=== PATIENT | female | born 1955 | race African-American/Black ===

== ENCOUNTER 2017-03-11 18:12 | Emergency (ER) | payer OTHER ==
[~2017-03-11] VITALS: Ht 157.5 cm; Wt 82.6 kg
[2017-03-11 20:00] VITALS: BP 175/93
[2017-03-11] MEDS ORDERED: KETOROLAC TROMETH 60MG/2ML VIAL IM ONE (20:15)
== END 2017-03-11 22:27 | disposition home or self-care (01) ==
LOC: ER 18:12
DX: R51 Headache (principal); M54.2 Cervicalgia; R07.9 Chest pain, unspecified; E11.9 Type 2 diabetes mellitus without complications; I10 Essential (primary) hypertension; Z88.6 Allergy status to analgesic agent; Z90.710 Acquired absence of both cervix and uterus; V43.52XA Car driver injured in collision with other type car in traffic accident, initial encounter; Y93.89 Activity, other specified; Y92.89 Other specified places as the place of occurrence of the external cause; Y99.8 Other external cause status
CPT/HCPCS: 70450; 72125; 96372; 99284; J1885